=== PATIENT | male | born 1970 | race Hispanic/Latino ===

== ENCOUNTER 2024-05-20 20:23 | Emergency (ER) | payer BC ==
[~2024-05-20] VITALS: Ht 172.7 cm; Wt 111.1 kg
[~2024-05-20 20:23] MED LIST: AMLODIPINE BESY10 MG PO; ASPIRIN81 MG PO; CLOPIDOGREL75 MG PO; OLMESARTAN MEDO20 MG PO
[2024-05-20 20:25] VITALS: PULSE 87; RESP 18; TEMP 97.8
[2024-05-20 20:44] LABS: BASOPHILS % 0.6 % (0.0-1.0); EOSINOPHILS # (AUTO) 0.4 (0.0-0.4); EOSINOPHILS % 6.6 % (0.0-6.0); HEMATOCRIT 41.6 % (38.2-49.6); LYMPHOCYTES # (AUTO) 2.1 (1.0-3.2); LYMPHOCYTES % 31.7 % (18.0-39.1); MEAN CORPUSCULAR HEMOGLOBIN 30.8 pg (28-32); MEAN CORPUSCULAR HGB CONC 33.7 g/dL (31-35); MEAN CORPUSCULAR VOLUME 91.4 fL (81-99); MONOCYTES # (AUTO) 0.6 (0.2-0.8); MONOCYTES % 9.3 % (4.4-11.3); NEUTROPHILS # (AUTO) 3.4 (2.1-6.9); NEUTROPHILS % 51.6 % (38.7-80.0); PLATELET COUNT 232 x10e3/uL (140-360); RED BLOOD COUNT 4.55 x10e6/uL (4.3-5.7); RED CELL DISTRIBUTION WIDTH 12.8 % (11.7-14.4); WHITE BLOOD COUNT 6.53 x10e3/uL (4.8-10.8)
[2024-05-20 21:06] LABS: ALBUMIN 3.7 g/dL (3.5-5.0); ANION GAP 13.6 mmol/L (8-16); BILIRUBIN,TOTAL 0.5 mg/dL (0.2-1.2); CALCIUM 9.4 mg/dL (8.4-10.2); CREATININE, SERUM 0.95 mg/dL (0.72-1.25); POTASSIUM 3.6 mmol/L (3.5-5.1); TOTAL PROTEIN 7.4 g/dL (6.5-8.1)
[2024-05-20] MEDS: KETOROLAC TROMETHAMINE 30 MG/ML VIAL IV STA (21:08)
[2024-05-20 21:11] LABS: TROPONIN I 0.008 ng/mL (0-0.300)
[2024-05-20] MEDS ORDERED: PEPCID AC10 MG PO (21:57)
[2024-05-20] MEDS ORDERED: KETOROLAC TROME10 MG PO (21:57)
[2024-05-20 22:19] VITALS: BP 114/81; PULSE 69; RESP 16; TEMP 98.2; O2SAT 95
== END 2024-05-20 22:05 | disposition home or self-care (01) ==
LOC: ER 20:28
DX: R06.02 Shortness of breath (principal); R07.89 Other chest pain; I10 Essential (primary) hypertension; I25.10 Atherosclerotic heart disease of native coronary artery without angina pectoris
CPT/HCPCS: 36415; 71045; 80053; 82550; 83690; 83880; 84484; 85025; 93005; 99284; J1885